=== PATIENT | male | born 1955 | race Caucasian/White ===

== ENCOUNTER 2021-02-02 12:35 | Emergency (ER) | payer OTHER ==
[~2021-02-02] VITALS: Ht 182.9 cm; Wt 106.3 kg
[2021-02-02] MEDS ORDERED: DIPH,PERTUSS(ACELL),TET VAC/PF 0.5 ML IM-VACC ONE ×2 (13:00→15:14)
[2021-02-02] MEDS ORDERED: LIDOCAINE 1%, 10ML INFIL ONE (13:00)
--- NOTE | 2021-02-02 15:01 | NUR ---
RE DYE HAND: PT TO ROOM LOBBY
[2021-02-02] MEDS ORDERED: LIDOCAINE-MPF 1%, 5ML ONE (15:14)
[2021-02-02 16:00] VITALS: BP 133/76
[2021-02-02] MEDS ORDERED: NEOSPORIN OINT. PKT 1 PACKET ONE (16:03)
== END 2021-02-02 16:25 | disposition home or self-care (01) ==
LOC: ED 16:22
DX: S51.812A Laceration without foreign body of left forearm, initial encounter (principal); S81.812A Laceration without foreign body, left lower leg, initial encounter; X58.XXXA Exposure to other specified factors, initial encounter; Y93.89 Activity, other specified; Y92.009 Unspecified place in unspecified non-institutional (private) residence as the place of occurrence of the external cause; Y99.8 Other external cause status
CPT/HCPCS: 12002; 90471; 90715